=== PATIENT | female | born 1995 | race African-American/Black ===

== ENCOUNTER 2019-05-05 13:37 | Emergency (ER) | payer SELFPAY ==
[2019-05-05 13:48] VITALS: BP 137/77; PULSE 84; RESP 18; TEMP 36.6; O2SAT 100
--- NOTE | 2019-05-05 14:05 | ED.URI ---
HPI - URI/Sore Throat General Chief Complaint: Upper Respiratory Infection Stated Complaint: Sore throat Time Seen by Provider: 05/05/19 14:00 Source: patient and RN notes reviewed Mode of arrival: ambulatory Limitations: no limitations History of Present Illness HPI Narrative: 23 old female presents with concern for sore throat, dry throat for 3 days. Reports mild nausea and occasional diarrhea. Reports throat hurts worse in the morning with some rhinorrhea and postnasal drainage. Denies fever, malaise, chills, sweats. Denies taking any medications for her problems. Reports recently finishing clindamycin for a tooth infection. MD elicited complaint: sore throat Related Data Home Medications Medication Instructions Recorded Confirmed No Home Medications 05/05/19 05/05/19 Allergies Allergy/AdvReac Type Severity Reaction Status Date / Time No Known Allergies Allergy Verified 05/05/19 13:56 Review of Systems Review of Systems: Narrative: CONSTITUTIONAL: Denies malaise, chills, sweats, or fever. EYES: Denies visual changes, redness, or discharge. ENT: Reports rhinorrhea, sore throat. Denies congestion, sinus pain, otalgia. CARDIOVASCULAR: Denies chest pain, palpitations, or edema. RESPIRATORY: Denies cough or dyspnea. GASTROINTESTINAL: Denies abdominal pain, nausea, vomiting, diarrhea SKIN: Denies rash or itching. MUSCULOSKELETAL: Denies myalgia. NEUROLOGIC: Denies headache. All systems reviewed & are unremarkable except as noted in HPI and below PMFSH Social History Social History Smoking status: Never smoker Alcohol intake: current Comments At time of signature, agree with nursing past medical, surgical, social and family history. There is no relevant family history pertinent to the presenting complaint Exam Narrative: Exam Narrative: GENERAL: Well-appearing, well-nourished, and in no acute distress. HEAD: Normocephalic EYES: PERRLA, conjunctivae clear ENT: Nares clear, turbinates edematous and erythematous, clear discharge. Mucous membranes moist. TM pearly woods with dull light reflex bilaterally; no tragal tenderness. Oropharynx erythematous without lesions. Tonsils not enlarged and without exudate, no drooling, no hoarseness, no trismus, uvula midline. NECK: Supple. No lymphadenopathy CHEST: Clear to auscultation, breath sounds equal. No wheezing, rhonchi, rales, or stridor. No respiratory distress, speaks in full sentences. HEART: Regular rate and rhythm. No murmur heard. SKIN: Warm, dry, no rash. NEURO: Alert and oriented x3. PSYCH: Normal mood and affect Course Course Emergency Course: Patient is aware of diagnosis, understands and agrees to treatment plan. Anticipatory guidance given. Patient agrees to follow-up as directed and is aware of reasons to seek care at the emergency department. Portions of this record may have been created with voice recognition software Vital Signs Vital signs: Vital Signs Temperature 97.9 F 05/05/19 13:48 Pulse Rate 84 05/05/19 13:48 Respiratory Rate 18 05/05/19 13:48 Blood Pressure 137/77 05/05/19 13:48 Pulse Oximetry 100 05/05/19 13:48 Temperature 97.9 F 05/05/19 13:48 Pulse Rate 84 05/05/19 13:48 Respiratory Rate 18 05/05/19 13:48 Blood Pressure 137/77 05/05/19 13:48 Pulse Oximetry 100 05/05/19 13:48 Reviewed. MDM - URI/Sore Throat MDM Narrative Medical decision making narrative: Differential diagnosis considered: Strep pharyngitis, allergic rhinitis, upper respiratory tract infection, sinusitis, rhinosinusitis, nasopharyngitis. viral pharyngitis, otitis media, otitis externa, pneumonia, bronchitis, viral cough syndrome, viral syndrome, and influenza. Exam findings show no acute concerns or changes; patient is non-toxic appearing and is in no distress. Patient is appropriate for outpatient treatment and follow-up. Lab Data Labs: Strep Screen Presumptive Negative *(Reference Range: Negative)*
== END 2019-05-05 14:12 | disposition home or self-care (01) ==
PROVIDERS: Emergency Provider Nurse Practitioner; PCP Family Medicine
DX: J02.9 Acute pharyngitis, unspecified (principal)
CPT/HCPCS: 87081; 87880; 99213; G0463

== ENCOUNTER → 2020-12-11 04:33 | Outpatient (CLI) | payer OTHER, SELFPAY ==
[2020-12-12 19:26] LABS: SARS-CoV-2 RNA PCR Negative
== END ==
PROVIDERS: PCP Family Medicine; Visit Provider Surgery Plastic and Reconstructive Surgery
DX: Z01.812 Encounter for preprocedural laboratory examination (principal); Z20.822 Contact with and (suspected) exposure to COVID-19
CPT/HCPCS: C9803; U0003; U0005

== ENCOUNTER 2020-12-14 05:43 | Day surgery (SDC) | payer OTHER, SELFPAY ==
[2020-09-05 11:42] VITALS: BMI 40.6
[2020-12-04 10:03] VITALS: BMI 38.9
--- NOTE | 2020-12-13 08:55 | WPDANESEPPF ---
Anes - Initial Pre Proc Eval Procedure: Operation Date: 12/14/20 07:30 Proposed Procedures p Bilateral Breast Reduction Mammoplasty - Efraín Salinas MD Date/Time: 12/13/20 08:55 Surgeon: Efraín Salinas MD Pre Op Diagnosis: Macromastia Patient Data Age: 25 Gender: F Height: 1.6 m Weight: 99.79 kg Allergies Allergy/AdvReac Type Severity Reaction Status Date / Time No Known Allergies Allergy Verified 12/14/20 05:49 Home Medications Medication Instructions Recorded Confirmed Type docusate sodium 100 mg capsule 100 mg PO DAILY #14 cap 09/05/20 12/14/20 Rx hydrocodone 5 mg-acetaminophen 325 1 tablet PO Q6H PRN #15 tablet 09/05/20 12/14/20 Rx mg tablet ondansetron HCl 4 mg tablet 4 mg PO Q8H #21 tablet 09/05/20 12/14/20 Rx Patient hx anesthesia problems: none Family hx anesthesia problems: none Results Review: All pre-operative results and documents have been reviewed as part of the pre-operative evaluation. [facility] Surgical History Surgical History H/O brain surgery Social History Social History Smoking status: Never smoker Alcohol intake: current Alcohol use details: rarely Substance use: never Living arrangements: with family Gender identity (if verbalized by the patient): Female Spiritual care concerns: No Anes - Eval Final PreProcedure Day of Procedure 12/13/20 08:55 Patient weight: obese Heart: regular rate and rhythm Lungs: clear to auscultation and normal air movement Airway: Mallampati scale class II Neurological: alert and oriented Last oral intake: >/= 8 hours ASA classification: III Emergent: no Anesthetic plan: proceed Anesthesia type and monitoring: general ETT and standard monitoring Results Review: All pre-operative results and documents have been reviewed as part of the pre-operative evaluation. Informed Consent: The patient's anesthetic plan and its attendant risks and benefits were discussed with the patient/family/POA. Questions were solicited and answers provided to the satisfaction of the patient/family/POA.
[2020-12-14] VITALS (9 sets, daily range): BP systolic 115–135; BP diastolic 65–98; PULSE 66–100; RESP 14–22; TEMP 36–36.8; O2SAT 97–100; BMI 43.0
[2020-12-14] MEDS: LACTATED RINGERS 1,000 ML 30 ML IV CONT ×2 (06:35→10:21)
[2020-12-14] MEDS: SCOPOLAMINE 1.5 MG PATCH TRANSDERM (06:36)
--- NOTE | 2020-12-14 06:44 | WPDHPUPDATE1 ---
History and Physical Update Update Date/Time: 12/14/20 06:44 History and Physical has been reviewed, including an updated exam of the patient. There are NO changes in the patient's condition. Risks, benefits, and alternatives have been discussed and questions answered. Patient agrees to proceed with procedure.
--- NOTE | 2020-12-14 06:45 | P.OP_ITS ---
Procedure Note - Detailed Date of Procedure 12/14/20 Pre-op Diagnosis Macromastia Post-op Diagnosis same Procedure Performed Bilateral reduction mammoplasty Surgeon Efraín Salinas MD Anesthesia general Findings Inverted T Superior Medial Pedicle Tissue removed: Right - 2304 grams Left - 1765 grams Lipoaspirate 500cc Description of Procedure She is here today for bilateral breast reduction. Previously and again today the risks, benefits, alternatives were discussed in extensive detail. I wanted her to be very realistic about the risks involved as well as expectations. We discussed aftercare and what to monitor for. She understands we can never gua rantee final breast size and there will always be asymmetry. I was very upfront and honest about the risks of sensation change and even nipple loss (). Made sure answered all of her questions to her satisfaction today and consent was obtained. She was marked in the preoperative holding area with their verification. The patient was taken to the operating room placed supine on the operating table. Anesthesia was provided by anesthesiology. She was prepped and draped in a standard sterile fashion. A surgical time-out was taken. Stab incisions were made and I tumessed with a tumescent solution. I marked out the nipple-areolar complex at 42 mm. I excised as a free nipple graft just deep to the dermis. I then removed the inferior portion of the breast as well as the central keel to get shape based on preoperative planning. At this point copiously irrigated with saline solution and verified a strict hemostasis. I reapproximated the pillars using a 2-0 PDS. I tailor tacked the breast into place with livier. She was placed in a sitting position. I verified the nipple-areolar complex position based on preoperative markings, intraoperative measurements, and observation which were in full agreement. This nipple-areolar complex was marked at 42 mm in size. To maximize symmetry / shape suction lipectomy with a 4 mm basket cannula based on S.A.F.E. principals was completed. Nipple-areolar complex was defatted and sutured into place with 5-0 chromic. I closed IMF deep with 1 strattafix. I closed the vertical incision with 3-0 Monocryl in the IMF with 3-0 stratafix. Then everything was closed using a running subcuticular 4-0 Monocryl followed by Steri-Strips. Tie over bolster created with Xeroform / cotton and sutured into placed over NAC with 3-0 Nylon. A dressing was placed followed by surgical bra. Patient was awoke and taken to PACU without difficulty. All instrument sponge counts were correct at the end of the case. Estimated Blood Loss 30 Drains No Packing No Pathology yes (bilateral breast tissue) Complications No immediate complications Condition stable Disposition PACU
[2020-12-14] MEDS: ceFAZolin SODIUM 2 GM/20 ML SW SYRINGE IV PUSH (07:27)
[2020-12-14] MEDS: LACTATED RINGERS IRRIG 1,000 ML, LIDOCAINE HCL 1% LOCAL INJ 50 ML, EPINEPHrine HCL INJ ... INFILTRATE (07:50)
[2020-12-14] MEDS: fentaNYL CITRATE INJ (*CRX) 100 MCG/2 ML VIAL 25 MCG IV PUSH ×4 (10:28→11:02)
[2020-12-14] MEDS: oxyCODONE HCL (*CRX) 5 MG TAB IR PO (11:47)
--- NOTE | 2020-12-14 12:25 | WPDANESPN ---
Anes - Prog Note Post-Op Date/Time: 12/14/20 12:25 Cardiovascular status: normal Respiratory status: normal Airway patency: baseline Mental status: baseline Post-Op hydration status: normal Vital Signs: Last Vital Signs Temp 36.5 C 12/14/20 11:15 Pulse 83 12/14/20 11:15 Resp 18 12/14/20 11:15 BP 118/65 12/14/20 11:15 Pulse Ox 99 12/14/20 11:15 Pain Score (VAS): 5 I/O: Intake & Output 12/13/20 12/14/20 12/14/20 23:59 07:59 15:59 Intake Total 300 Balance 300 Post-procedural complaints: none Patient Feedback: Patient satisfied with anesthetic care. Other Findings: Patient vital signs back to baseline. Patient denies nausea and vomiting. Patient's pain under control and wishes to go home. Patient OK for discharge.
== END 2020-12-14 12:30 | disposition home or self-care (01) ==
PROVIDERS: PCP Family Medicine; Visit Provider Surgery Plastic and Reconstructive Surgery
PROC: 0HBV0ZZ Excision of Bilateral Breast, Open Approach (ICD-10-PCS; CPT 19318; principal; 2020-12-14 07:30)
DX: N64.82 Hypoplasia of breast (principal)
CPT/HCPCS: 19318

== ENCOUNTER 2020-12-14 09:40 | Outpatient (NON) | payer SELFPAY | END 2020-12-14 09:41 | disposition home or self-care (01) | LOC: ANHLAB 12-24 09:40 | PROVIDERS: PCP Family Medicine; Visit Provider Surgery Plastic and Reconstructive Surgery | DX: N62 Hypertrophy of breast (principal) | CPT/HCPCS: 88305 ==

== ENCOUNTER 2021-10-01 18:58 | Emergency (ER) | payer BC, SELFPAY ==
--- NOTE | ~2021-10-01 | XR_ITS ---
EXAM: XR foot RT min 3V DATE: 10/01/2021 19:23 HISTORY: KNI.FOOT PAIN X 4 DAYS. GENERALIZED PAIN 1ST TOE. . COMPARISON: None available. FINDINGS: Normal mineralization. No fracture or dislocation. No lytic or blastic lesion. Joint space s are maintained. No erosion or periosteal change. Soft tissues within normal limits. IMPRESSION: No acute osseous finding in the right foot. Reviewed, dictated and finalized at location K.
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
[2021-10-01 19:06] VITALS: PULSE 112; RESP 16; TEMP 37.2; O2SAT 100
[2021-10-01] MEDS: KETOROLAC (*BKC) 60 MG/2 ML VIAL IM (19:34)
== END 2021-10-01 20:05 | disposition home or self-care (01) ==
PROVIDERS: Emergency Provider Nurse Practitioner Family; PCP Family Medicine
DX: M77.8 Other enthesopathies, not elsewhere classified (principal)
CPT/HCPCS: 73630; 96372; 99213; G0463; J1885

== ENCOUNTER 2022-12-18 08:21 | Emergency (ER) | payer SELFPAY ==
--- NOTE | ~2022-12-18 | XR_ITS ---
XR hand RT min 3V 12/18/2022 08:50 INDICATION: Right hand pain after trauma PROCEDURE: 3 views right hand COMPARISON: 01/26/2018 FINDINGS: Fracture, dislocation or subluxation is not identified. The soft tissues appear within norm al limits. No foreign bodies are identified. IMPRESSION: 1: NO ACUTE BONE OR JOINT ABNORMALITY IDENTIFIED. Reviewed, dictated and finalized at location L.
[2022-12-18 08:31] VITALS: BP 126/88; PULSE 63; RESP 16; TEMP 36.2; O2SAT 100
[2022-12-18 08:32] VITALS: BP 126/88; PULSE 63; RESP 16; TEMP 36.2; O2SAT 100
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
== END 2022-12-18 09:18 | disposition home or self-care (01) ==
PROVIDERS: Emergency Provider Nurse Practitioner; PCP Family Medicine
DX: S60.221A Contusion of right hand, initial encounter (principal); X58.XXXA Exposure to other specified factors, initial encounter
CPT/HCPCS: 73130; 99213; G0463